=== PATIENT | female | born 1995 | race Caucasian/White ===

== ENCOUNTER 2020-05-29 15:26 | Emergency (ER) | payer SELFPAY ==
--- NOTE | 2020-05-29 17:49 | ER Document Report ---
ED Medical Screen (RME) - General Stated Complaint: INSECT BITE Time Seen by Provider: 05/29/20 17:40 Primary Care Provider: CASANDRA GREY [Primary Care Provider] - Follow up as needed - [facility] Notes: Patient is a 24 y/o female with a hx of IV drug abuse who presents with an abscess to her left inner thigh that began two days ago. Patient reports redness, swelling, tenderness and warmth to the area. She denies fever and vomiting. Physical Exam - Vital signs Vitals: Temp Pulse Resp BP Pulse Ox 98.0 F 96 16 127/96 H 98 05/29/20 15:41 05/29/20 15:41 05/29/20 15:41 05/29/20 15:41 05/29/20 15:41 Interpretation: No: Febrile - General General appearance: Appears well, Alert In distress: None - Respiratory Respiratory status: No respiratory distress - Extremities Notes: Unable to assess abscess in triage due to location. Will be assessed by provider in the back once the patient is placed in a room. Course - Re-evaluation Re-evalutation: I have greeted and performed a rapid initial assessment of this patient. A comprehensive ED assessment and evaluation of the patient, analysis of test results and completion of medical decision making process will be conducted by an additional ED providers. - Vital Signs Vital signs: Temp Pulse Resp BP Pulse Ox 98.0 F 96 16 127/96 H 98 05/29/20 15:41 05/29/20 15:41 05/29/20 15:41 05/29/20 15:41 05/29/20 15:41 Doctor's Discharge - Discharge Referrals: CASANDRA GREY [Primary Care Provider] - Follow up as needed
[2020-05-29 18:22] LABS: ABSOLUTE BASOPHILS # (AUTO) 0.1 10^3/uL (0.0-0.2); ABSOLUTE EOSINOPHILS # (AUTO) 0.2 10^3/uL (0.0-0.6); ABSOLUTE LYMPHOCYTES (AUTO) 2.9 10^3/uL (0.5-4.7); ABSOLUTE MONOCYTES (AUTO) 0.8 10^3/uL (0.1-1.4); ABSOLUTE NEUT (AUTO) 4.2 10^3/uL (1.7-8.2); BASOPHILS % (AUTO) 0.6 % (0-2); HEMATOCRIT 34.7 % (36.0-47.0); HEMOGLOBIN 12.1 g/dL (12.0-15.5); LYMPHOCYTES % (AUTO) 35.4 % (13-45); MEAN CORPUSCULAR HEMOGLOBIN 27.9 pg (27.0-33.4); MEAN CORPUSCULAR VOLUME 80 fl (80-97); MONOCYTES % (AUTO) 9.8 % (3-13); PLATELET COUNT 341 10^3/uL (150-450); RED BLOOD COUNT 4.35 10^6/uL (3.72-5.28); RED CELL DISTRIBUTION WIDTH 13.5 % (11.5-14.0); SEGMENTED NEUTROPHILS % (AUTO) 51.2 % (42-78); TOTAL CELLS COUNTED % (AUTO) 100 %; WHITE BLOOD COUNT 8.1 10^3/uL (4.0-10.5)
[2020-05-29 18:36] LABS: ALBUMIN 4.2 g/dL (3.5-5.0); ALKALINE PHOSPHATASE 43 U/L (38-126); ANION GAP 7 (5-19); ASPARTATE AMINO TRANSFERASE 28 U/L (14-36); BILIRUBIN,DIRECT 0.2 mg/dL (0.0-0.4); BILIRUBIN,TOTAL 0.7 mg/dL (0.2-1.3); BLOOD UREA NITROGEN 10 mg/dL (7-20); CALCIUM 9.6 mg/dL (8.4-10.2); CARBON DIOXIDE 29 mmol/L (22-30); CHLORIDE 104 mmol/L (98-107); GLUCOSE 72 mg/dL (75-110); POTASSIUM 4.6 mmol/L (3.6-5.0); TOTAL PROTEIN 7.3 g/dL (6.3-8.2)
[2020-05-29] MEDS ORDERED: CEPHALEXIN 500 MG CAPSULE PO ONE (22:54)
[2020-05-29] MEDS ORDERED: SULFAMETHOXAZOLE/TRIMETHOPRIM 800-160 MG TABLET PO ONE (22:54)
--- NOTE | 2020-05-29 22:55 | ER Document Report ---
HPI - HPI Patient complains to provider of: Skin infection Time Seen by Provider: 05/29/20 17:40 Onset: Other - 4 days Onset/Duration: Persistent Quality of pain: Achy Pain Level: 3 Context: Patient complains of skin infection to the right thigh for the past 4 days. P atient denies any fever. Patient does acknowledge history of IV drug abuse although denies any needle sticks to the right thigh. Associated Symptoms: Other - Right thigh infection. denies: Fever, Vomiting Exacerbated by: Denies Relieved by: Denies Similar symptoms previously: No Recently seen / treated by doctor: No - ROS ROS below otherwise negative: Yes Systems Reviewed and Negative: Yes All other systems reviewed and negative - CONSTITUTIONAL Constitutional: DENIES: Fever, Chills - NEURO Neurology: DENIES: Weakness - CARDIOVASCULAR Cardiovascular: DENIES: Chest pain - RESPIRATORY Respiratory: DENIES: Trouble Breathing, Coughing - MUSCULOSKELETAL Musculoskeletal: REPORTS: Extremity pain - DERM Skin Color: Erythema Past Medical History - General Information source: Patient - Social History Smoking Status: Never Smoker Frequency of alcohol use: None Drug Abuse: Heroin Occupation: [employer] Family History: Reviewed & Not Pertinent - Medical History Medical History: Negative Surgical Hx: Negative Vertical Provider Document - CONSTITUTIONAL Agree With Documented VS: Yes Exam Limitations: No Limitations General Appearance: WD/WN, No Apparent Distress - HEENT HEENT: Atraumatic, Normocephalic - NECK Neck: Normal Inspection - RESPIRATORY Respiratory: Breath Sounds Normal, No Respiratory Distress - CARDIOVASCULAR Cardiovascular: Regular Rate, Regular Rhythm - MUSCULOSKELETAL/EXTREMETIES Musculoskeletal/Extremeties: MAEW, FROM - NEURO Level of Consciousness: Awake, Alert, Appropriate Motor/Sensory: No Motor Deficit - DERM Integumentary: Warm, Dry, Abscess - Resolving abscess to medial aspect of right thigh, minimal surrounding erythema. Patient with scattered erythematous maculopapular lesions in linear pattern Course - Re-evaluation Re-evalutation: 05/29/20 23:00 Patient with resolving abscess to right medial thigh, patient does have an area of erythema to the lateral aspect surrounding the abscess worrisome for possible cellulitis. Patient has additional erythematous macular lesions worrisome for dermatitis likely from the tape that has been used to cover her leg wound. No fluctuance, no drainable abscess at this time, no purulence able to be expressed from abscess. Will culture wound and place patient on antibiotics. Patient encouraged to avoid use of adhesives to prevent dermatitis type reaction. - Vital Signs Vital signs: Temp Pulse Resp BP Pulse Ox 97.7 F 96 16 127/96 H 98 05/29/20 22:23 05/29/20 15:41 05/29/20 15:41 05/29/20 15:41 05/29/20 15:41 - Laboratory Results Result Diagrams: 05/29/20 18:00 05/29/20 18:00 Laboratory Results Interpreted: 05/29/20 05/29/20 18:00 18:00 Hct 34.7 L Glucose 72 L 05/30/20 06:32 Labs- All tests 24 hr 05/29/20 05/29/20 18:00 18:00 WBC 8.1 RBC 4.35 Hgb 12.1 Hct 34.7 L MCV 80 MCH 27.9 MCHC 35.0 RDW 13.5 Plt Count 341 Lymph % (Auto) 35.4 [place] % (Auto) 9.8 Eos % (Auto) 3.0 Baso % (Auto) 0.6 Absolute Neuts (auto) 4.2 Absolute Lymphs (auto) 2.9 Absolute Monos (auto) 0.8 Absolute Eos (auto) 0.2 Absolute Basos (auto) 0.1 Seg Neutrophils % 51.2 Sodium 140.0 Potassium 4.6 Chloride 104 Carbon Dioxide 29 Anion Gap 7 BUN 10 Creatinine 0.65 Est GFR ( Amer) > 60 Est GFR (MDRD) Non-Af > 60 Glucose 72 L Calcium 9.6 Total Bilirubin 0.7 Direct Bilirubin 0.2 Neonat Total Bilirubin Not Reportable Neonat Direct Bilirubin Not Reportable Neonat Indirect Bili Not Reportable AST 28 ALT 14 Alkaline Phosphatase 43 Total Protein 7.3 Albumin 4.2 Critical Laboratory Results Reviewed: No Critical Results - Radiology Results Critical Radiology Results Reviewed: No Critical Results Discharge - Discharge Clinical Impression: Leg abscess, Dermatitis Condition: Stable Disposition: HOME, SELF-CARE Instructions: Abscess ([facility]), Cephalexin ([facility]), Trimethoprim-Sulfa ([facility]) Additional Instructions: Return immediately for any new or worsening symptoms: Fever, increased redness or any new or worsening symptoms Followup with your primary care provider, call tomorrow to make a followup appointment Avoid using adhesive tape as you are having a sensitivity to the adhesive. Prescriptions: Sulfamethoxazole/Trimethoprim [Bactrim Ds Tablet] 1 each PO BID #20 tablet Mupirocin [Bactroban 2% Ointment 22 gm] 1 applic TP TID #22 gm Cephalexin Monohydrate [Keflex 500 mg Capsule] 500 mg PO Q6H 7 Days #28 capsule Forms: Return to Work Referrals: [facility] [Provider Group] - Follow up as needed
[2020-05-29 23:49] VITALS: BP 122/88
== END 2020-05-29 23:50 | disposition home or self-care (01) ==
LOC: ER 15:26
DX: L02.415 Cutaneous abscess of right lower limb (principal); L30.9 Dermatitis, unspecified
CPT/HCPCS: 36415; 80053; 85025; 87070; 87075; 87077; 87205; 99283